=== PATIENT | male | born 2000 | race Caucasian/White ===

== ENCOUNTER 2022-04-20 15:07 | Emergency (ER) | payer SELFPAY ==
[2022-04-20] MEDS ORDERED: LORazepam 0.5 MG Tab PO ONE (15:37)
[2022-04-20] MEDS: LORazepam 0.5 MG Tab PO PRN (22:15)
[2022-04-21] MEDS: LORazepam 0.5 MG Tab PO PRN (01:11)
== END 2022-04-21 11:55 ==
LOC: JD.ED 15:07
DX: R45.851 Suicidal ideations (principal); Z20.822 Contact with and (suspected) exposure to COVID-19
CPT/HCPCS: 36415; 80053; 80143; 80179; 80306; 80307; 84443; 85025; 87635; 93005; 99284; A9270; U0002